=== PATIENT | female | born 1980 | race Caucasian/White ===

== ENCOUNTER 2017-09-02 13:56 | Emergency (ER) | payer BC ==
[2017-09-02 14:04] VITALS: BP 122/74; PULSE 89; TEMP 98.3; BMI 24.0
[2017-09-02 16:39] LABS: URINE APPEARANCE CLEAR; URINE BILIRUBIN NEGATIVE (NEGATIVE); URINE BLOOD NEGATIVE (NEGATIVE); URINE COLOR STRAW; URINE GLUCOSE (UA) NEGATIVE (NEGATIVE); URINE KETONE NEGATIVE (NEGATIVE); URINE LEUK ESTERASE NEGATIVE (NEGATIVE); URINE NITRITE NEGATIVE (NEGATIVE); URINE PROTEIN NEGATIVE (NEGATIVE); URINE UROBILINOGEN NEGATIVE mg/dL (0.2-1.0)
--- NOTE | 2017-09-02 16:59 | PDOC ---
History of Present Illness - General Chief Complaint: Pain, Acute Stated Complaint: FEVER,VOMITING,ABD PAIN - History of Present Illness Initial Comments: Ms Michael is a 37yo F with a PMHx of Tubal ligation who presents with acute on chronic RLQ pain. The pain has been present intermittently for the past 4 years , worsens around time of menses. The pain has become more constant in the past couple weeks, and upon disclosing this to her partner, told her to come to the ER. She has been seen by this ER and has been seen by GI and OBGYN. Previous Abd CT w/ PO contrast was negative. Previous TVUS shows multiple follicular cysts. Previous Abd XR shows constipation. She has taken Linzess with some relief. She has been seen by GI (Dr Olivia), performed colonoscopy which showed normal findings. She has been seen by OBGYN who has done more TVUS which were negative. Of note, she also endorses pain with intercourse, and pain w/ bowel movements, though no endometriomas were seen on TVUS. She recently had flu like symptoms of fevers, chills, diarrhea, with positive sick contacts (kids ). She is worried because her abdominal pain is not going away. SH - Denies smoking, drugs, alcohol PMD - Dr Alverto Nunez Allergies - Outdoor allergies Past History - Past Medical History Allergies/Adverse Reactions: Allergies Allergy/AdvReac Type Severity Reaction Status Date / Time No Known Allergies Allergy Verified 09/02/17 14:00 Anemia: No COPD: No CHF: No Diabetes: Yes (GESTATIONAL) Seizures: No - Surgical History Abdominal Surgery: Yes (TUBAL LIGATION) - Reproductive History Tubal Ligation: Yes - Immunization History Immunization Up to Date: Yes - Suicide/Smoking/Psychosocial Hx Smoking Status: No Smoking History: Never smoked Have you smoked in the past 12 months: No Number of Cigarettes Smoked Daily: 0 Hx Alcohol Use: No Drug/Substance Use Hx: No Substance Use Type: None Review of Systems - Review of Systems Able to Perform ROS?: Yes Constitutional: No: Chills, Diaphoresis *Physical Exam - Vital Signs Last Vital Signs Temp Pulse Resp BP Pulse Ox 98.3 F 89 18 122/74 100 09/02/17 14:01 09/02/17 14:01 09/02/17 14:01 09/02/17 14:01 09/02/17 14:01 ED Treatment Course - LABORATORY CBC & Chemistry Diagram: 09/02/17 18:13 09/02/17 19:25 *DC/Admit/Observation/Transfer Diagnosis at time of Disposition: Abdominal pain Qualifiers: Abdominal location: right lower quadrant Qualified Code(s): R10.31 - Right lower quadrant pain - Discharge Dispostion Disposition: HOME Condition at time of disposition: Improved Admit: No - Referrals Referrals: Bryan Nunez MD [Primary Care Provider] - Antwan Villarreal MD [Staff Physician] - 1 week - Patient Instructions Printed Discharge Instructions: DI for Endometriosis Additional Instructions: You were seen in the Emergency room for right lower quadrant abdominal pain. You have been having this pain for a long time. Your labs are normal. We suspect that this could be endometriosis. We suggest that you followup with your OBGYN and ask them to take a better look at your symptoms. It is possible they will start you on control pills. If you have recurrent symptoms, please come back to the Emergency Room - Post Discharge Activity
--- NOTE | 2017-09-02 18:18 | PDOC ---
Attending Attestation - [facility] HPI: 09/02/17 18:26 The patient is a 37 year old female, with a significant past medical history of tubal ligation and gestational diabetes, who presents to the emergency department with worsening abdominal pain for the past week. She reports that her pain is localized in the right lower quadrant, ranging from mild to moderate , without radiation or modifying factors. She reports that she has been having this pain for the past 4 years intermittently. She has been seen in this ED in the past as well as by GI and HEAD CORRECTION OFFICER specialist. Her previous Abd CT w/ PO contrast was negative. She has been seen by GI (Dr Olivia), performed colonoscopy which showed normal findings. She reports that she is experiencing pain with intercourse, and pain w/ bowel movements. She recently had flu like symptoms that included fevers, chills, diarrhea. She notes that she was exposed to sick contacts (Her children). The patient denies chest pain, shortness of breath, headache and dizziness. Denies nausea, vomit, and constipation. Denies dysuria, frequency, urgency and hematuria. Allergies: None Past surgical history: Tubal ligation Social history: No alcohol, tobacco or drug use reported - Physicial Exam PE: 09/02/17 18:27 GENERAL: Awake, alert, and fully oriented, in no acute distress HEAD: No signs of trauma, normocephalic, atraumatic EYES: PERRLA, EOMI, sclera anicteric, conjunctiva clear ENT: Auricles normal inspection, hearing grossly normal, nares patent, oropharynx clear without exudates. Moist mucosa NECK: Normal ROM, supple, no lymphadenopathy, JVD, or masses LUNGS: No distress, speaks full sentences, clear to auscultation bilaterally HEART: Regular rate and rhythm, normal S1 and S2, no murmurs, rubs or gallops, peripheral pulses normal and equal bilaterally. ABDOMEN: (+) RLQ tenderness to palpation. Soft, normoactive bowel sounds. No guarding, no rebound. No masses EXTREMITIES : Normal inspection, Normal range of motion, no edema. No clubbing or cyanosis. NEUROLOGICAL: Cranial nerves II through XII grossly intact. Normal speech, no focal sensorimotor deficits SKIN: Warm, Dry, normal turgor, no rashes or lesions noted. <Von Rivas - Last Filed: 09/02/17 18:26> - Resident Resident Name: Jhonathan Macias - ED Attending Attestation I have performed the following: I have examined & evaluated the patient, The case was reviewed & discussed with the resident, I agree w/resident's findings & plan, Exceptions are as noted - Medical Decision Making 09/03/17 01:42 Patient is not , does not have urinary tract infection. Her labs are essentially unremarkable. Discussed at length the differential diagnosis for her intermittent right lower quadrant pain, which includes endometriosis and IBS. She has had colonoscopy and has been followed by a roustabout pusher for this pain. She does see Dr. Antwan Villarreal and was actually seen by him August 04 for this pain. Since she's had no fever or chills or vomiting with this pain and it seems to be a stuttering pain that she has had for extended period of time, no CAT scan was done and she is going to follow-up with her electronic imaging system operator <Cassie Ceballos - Last Filed: 09/03/17 01:44>
[2017-09-02 18:24] LABS: BASO % 0.6 % (0-2.0); EOS % 3.2 % (0-4.5); HEMATOCRIT 41.7 % (32.4-45.2); HEMOGLOBIN 13.7 GM/dL (10.7-15.3); LYMPH % 22.7 % (8-40); MCH 28.4 pg (25.7-33.7); MCHC 32.9 g/dl (32.0-36.0); MEAN CELL VOLUME 86.3 fl (80-96); MEAN PLT VOLUME 9.3 fl (7.5-11.1); MONO % 11.1 % (3.8-10.2); NEUT % 62.4 % (42.8-82.8); PLATELET COUNT 302 K/MM3 (134-434); RBC 4.83 M/mm3 (3.60-5.2); RDW 14.5 % (11.6-15.6); WHITE BLOOD COUNT 4.5 K/mm3 (4.0-10.0)
[2017-09-02 20:04] LABS: ALBUMIN 3.8 g/dl (3.4-5.0); ANION GAP 10 (8-16); BILIRUBIN,TOTAL 0.4 mg/dL (0.2-1.0); BLOOD UREA NITROGEN 9 mg/dL (7-18); CALCIUM 8.8 mg/dL (8.5-10.1); CHLORIDE 103 mmol/L (98-107); CO2 27 mmol/L (21-32); CREATININE 0.8 mg/dL (0.55-1.02); GLUCOSE,RANDOM 82 mg/dL (74-106); POTASSIUM 3.7 mmol/L (3.5-5.1); SGOT/AST 13 U/L (15-37); SGPT/ALT 26 U/L (12-78); SODIUM 140 mmol/L (136-145); TOT PROT 7.1 g/dl (6.4-8.2)
[2017-09-02 20:05] LABS: ALK PHOS 49 U/L (45-117)
== END 2017-09-02 20:32 | disposition home or self-care (01) ==
LOC: JER 13:56
DX: N83.01 Follicular cyst of right ovary (principal); R10.31 Right lower quadrant pain; K59.00 Constipation, unspecified; N94.10 Unspecified dyspareunia
CPT/HCPCS: 36415; 80053; 81003; 85025; 87086; 99282-25

== ENCOUNTER 2022-02-12 19:50 | Emergency (ER) | payer BC ==
[2022-02-12 20:12] VITALS: BP 143/90; PULSE 78; TEMP 98.8; BMI 25.7
[2022-02-12 20:25] LABS: HEMATOCRIT 35.6 % (32.4-45.2); HEMOGLOBIN 12.5 G/dL (10.7-15.3); MCH 31.4 pg (25.7-33.7); MCHC 35.2 g/dl (32.0-36.0); MEAN CELL VOLUME 89.1 fl (80-96); MEAN PLT VOLUME 8.2 fl (7.5-11.1); PLATELET COUNT 336.6 10^3/uL (134-434); RBC 3.99 10^6/uL (3.60-5.2); RDW 15.4 % (11.6-15.6); WHITE BLOOD COUNT 7.8 10^3/uL (4.0-10.8)
[2022-02-12 20:28] LABS: HCG,QUALITATIVE URINE Negative
[2022-02-12 20:44] LABS: BILIRUBIN,TOTAL 0.4 mg/dl (0.2-1); CALCIUM 9.2 mg/dl (8.5-10); CREATININE 0.8 mg/dl (0.55-1.3); TOT PROT 7.2 g/dl (6.4-8.2)
[2022-02-12 20:47] LABS: PLATELET ESTIMATE ADEQUATE
[2022-02-12 20:53] LABS: EPITHELIAL CELLS FEW /hpf
== END 2022-02-12 21:28 | disposition home or self-care (01) ==
LOC: FER 19:50
DX: N83.201 Unspecified ovarian cyst, right side (principal)
CPT/HCPCS: 36415; 76830-TC; 80053; 81003; 81015; 84703; 85025; 87077; 87086; 99284-25